=== PATIENT | male | born 1970 | race Caucasian/White ===

== ENCOUNTER 2019-04-05 08:45 | Emergency (ER) | payer OTHER ==
[~2019-04-05] VITALS: Ht 167.6 cm; Wt 88.5 kg
[~2019-04-05 08:45] MED LIST: FENOFIBRATE145 MG; METOPROLOL SUCC25 MG; ORPH100T PO; SKELAXIN800 MG PO; ZOCOR5 MG
[2019-04-05] MEDS ORDERED: LISINOPRIL5 MG (08:54)
== END 2019-04-05 16:40 ==
LOC: ER 08:45 → CPU-OBS 09:20 → ER 09:20
DX: R07.89 Other chest pain (principal); I10 Essential (primary) hypertension; E78.5 Hyperlipidemia, unspecified
CPT/HCPCS: 93005; 93306; G0378; G0379

== ENCOUNTER 2019-04-28 07:24 | Outpatient (CLI) | payer OTHER ==
[~2019-04-28 07:24] MED LIST changes: +LISINOPRIL5 MG
== END 2019-04-28 07:25 | disposition home or self-care (01) ==
LOC: NUCLEAR 07:24
DX: I20.9 Angina pectoris, unspecified (principal)
CPT/HCPCS: 78452; 93017; A9500

== ENCOUNTER 2019-08-17 19:03 | Emergency (ER) | payer OTHER ==
[~2019-08-17] VITALS: Ht 167.6 cm; Wt 84.4 kg
== END 2019-08-17 20:23 | disposition home or self-care (01) ==
LOC: ER 19:03
DX: S81.821A Laceration with foreign body, right lower leg, initial encounter (principal); W45.8XXA Other foreign body or object entering through skin, initial encounter; Y93.89 Activity, other specified; Y92.89 Other specified places as the place of occurrence of the external cause; Y99.8 Other external cause status

== ENCOUNTER 2019-08-25 07:54 | Emergency (ER) | payer OTHER ==
[~2019-08-25] VITALS: Ht 167.6 cm; Wt 84.4 kg
== END 2019-08-25 10:17 | disposition home or self-care (01) ==
LOC: ER 07:54
DX: Z48.02 Encounter for removal of sutures (principal)

== ENCOUNTER 2020-04-13 18:56 | Emergency (ER) | payer OTHER ==
[~2020-04-13] VITALS: Ht 167.6 cm; Wt 81.6 kg
== END 2020-04-13 21:16 | disposition home or self-care (01) ==
LOC: ER 18:56
DX: S00.83XA Contusion of other part of head, initial encounter (principal); S40.011A Contusion of right shoulder, initial encounter; S50.01XA Contusion of right elbow, initial encounter; V19.9XXA Pedal cyclist (driver) (passenger) injured in unspecified traffic accident, initial encounter; Y93.89 Activity, other specified; Y92.89 Other specified places as the place of occurrence of the external cause; Y99.8 Other external cause status

== ENCOUNTER 2022-10-19 16:02 | Emergency (ER) | payer OTHER ==
[~2022-10-19] VITALS: Ht 167.6 cm; Wt 88.5 kg
[2022-10-19] MEDS ORDERED: ANTIVERT25 M2 PO (20:50)
== END 2022-10-19 22:12 | disposition home or self-care (01) ==
LOC: ER 16:02
DX: R42 Dizziness and giddiness (principal); I10 Essential (primary) hypertension; Z88.6 Allergy status to analgesic agent

== ENCOUNTER 2023-03-12 09:12 | Emergency (ER) | payer OTHER ==
[~2023-03-12] VITALS: Ht 167.6 cm; Wt 88.5 kg
[~2023-03-12 09:12] MED LIST changes: +ANTIVERT25 M2 PO
[2023-03-12] MEDS ORDERED: DICY20TA PO (18:03)
[2023-03-12] MEDS ORDERED: ZOFRAN8 MG PO (18:03)
[2023-03-12] MEDS ORDERED: PEPCID20 MG PO (18:03)
[2023-03-12] MEDS ORDERED: INTESTINEX680 M1 PO (18:03)
== END 2023-03-12 18:09 | disposition home or self-care (01) ==
LOC: ER 09:12
DX: K52.89 Other specified noninfective gastroenteritis and colitis (principal); I10 Essential (primary) hypertension; Z88.6 Allergy status to analgesic agent; Z91.010 Allergy to peanuts; Z91.018 Allergy to other foods

== ENCOUNTER 2023-12-24 12:56 | Emergency (ER) | payer OTHER ==
[~2023-12-24] VITALS: Ht 167.6 cm; Wt 88.5 kg
[~2023-12-24 12:56] MED LIST changes: +DICY20TA PO; +INTESTINEX680 M1 PO; +PEPCID20 MG PO; +ZOFRAN8 MG PO
[2023-12-24] MEDS ORDERED: GUAIFENESIN/DEXTROMETHORPHAN 100 MG/5 ML ML PO ONE (15:15)
[2023-12-24] MEDS ORDERED: FAMOTIDINE/PF 20 MG/2 ML VIAL IV ONE (15:15)
[2023-12-24 15:51] LABS: HEMATOCRIT 43.3 % (39.0-48.0); HEMOGLOBIN 14.7 g/dL (13-16.00); MEAN CELL VOLUME 88.8 fL (80.0-100.00); MEAN CORPUSCULAR HEMOGLOBIN 30.2 pg (27.00-32.0); PLATELET COUNT 225 K/uL (150-450); RED BLOOD COUNT 4.88 M/uL (4.00-6.00); RED CELL DISTRIBUTION WIDTH 13.9 % (11.5-14.5)
[2023-12-24 16:22] LABS: BILIRUBIN TOTAL 0.24 mg/dL (0.3-1.2); CALCIUM 8.9 mg/dL (8.5-10.1); CREATININE SERUM 0.99 mg/dL (0.70-1.30); GFR 78.48; GLOBULINA 3.6 G/DL (2.4-3.5); POTASSIUM 3.93 mEq/L (3.5-5.1); TOTAL PROTEIN 7.6 gm/dL (6.4-8.2)
[2023-12-24] MEDS ORDERED: OSELTAMIVIR PHOSPHATE 75 MG CAPSULE PO ONE (16:45)
[2023-12-24] MEDS ORDERED: OSEL75CA PO (17:34)
[2023-12-24] MEDS ORDERED: PEPCID AC20 MG PO (17:34)
[2023-12-24] MEDS ORDERED: TUSSIN DM SYRU118 ML PO (17:34)
== END 2023-12-24 18:03 | disposition home or self-care (01) ==
LOC: ER 12:56
PROVIDERS: Nurse Practitioner Family
DX: J10.1 Influenza due to other identified influenza virus with other respiratory manifestations (principal); R10.13 Epigastric pain; R10.9 Unspecified abdominal pain; Z20.822 Contact with and (suspected) exposure to COVID-19; I10 Essential (primary) hypertension; Z91.010 Allergy to peanuts; Z91.018 Allergy to other foods; Z88.6 Allergy status to analgesic agent

== ENCOUNTER 2024-05-24 18:26 | Emergency (ER) | payer OTHER ==
[~2024-05-24] VITALS: Ht 172.7 cm; Wt 72.6 kg
[~2024-05-24 18:26] MED LIST changes: +OSEL75CA PO; +PEPCID AC20 MG PO; +TUSSIN DM SYRU118 ML PO
[2024-05-24] MEDS ORDERED: OMEGA-31000 MG (19:29)
[2024-05-24] MEDS ORDERED: CRESTOR40 MG (19:29)
[2024-05-24] MEDS ORDERED: FENOFIBRATE160 MG (19:39)
[2024-05-24 19:47] VITALS: BP 160/100; O2SAT 100
[2024-05-24] MEDS ORDERED: FUROsemide 20 MG/2 ML VIAL IV ONE (20:00)
[2024-05-24] MEDS ORDERED: ENALAPRILAT DIHYDRATE 1.25 MG/ML VIAL IV ONE ×2 (20:00→20:15)
[2024-05-24] MEDS ORDERED: CLONIDINE HCL 0.1 MG TABLET PO ONE ×2 (20:00→20:14)
[2024-05-24] MEDS ORDERED: FUROsemide 20 MG/2 ML VIAL ONE (20:14)
[2024-05-24 20:17] LABS: HEMATOCRIT 43.3 % (39.0-48.0); HEMOGLOBIN 14.6 g/dL (13-16.00); MEAN CELL VOLUME 89.7 fL (80.0-100.00); MEAN CORPUSCULAR HEMOGLOBIN 30.2 pg (27.00-32.0); MEAN CORPUSCULAR HGB CONC 33.7 g/dl (32.0-36.0); PLATELET COUNT 249 K/uL (150-450); RED BLOOD COUNT 4.83 M/uL (4.00-6.00); RED CELL DISTRIBUTION WIDTH 13.5 % (11.5-14.5)
[2024-05-24 20:45] LABS: ALBUMIN 4.3 gm/dL (3.4-5.0); BILIRUBIN TOTAL 0.4 mg/dL (0.3-1.2); CALCIUM 9.4 mg/dL (8.5-10.1); CREATININE SERUM 0.94 mg/dL (0.70-1.30); GFR 83.32; GLOBULINA 3.6 G/DL (2.4-3.5); POTASSIUM 4.07 mEq/L (3.5-5.1); TOTAL PROTEIN 7.9 gm/dL (6.4-8.2)
== END 2024-05-24 22:06 | disposition home or self-care (01) ==
LOC: ER 18:27
PROVIDERS: General Practice
DX: I16.9 Hypertensive crisis, unspecified (principal); I10 Essential (primary) hypertension; Z88.6 Allergy status to analgesic agent; Z91.018 Allergy to other foods; Z91.010 Allergy to peanuts

== ENCOUNTER 2024-12-18 08:55 | Outpatient (CLI) | payer OTHER ==
[~2024-12-18 08:55] MED LIST changes: +CRESTOR40 MG; +FENOFIBRATE160 MG; +OMEGA-31000 MG
== END 2024-12-18 08:57 | disposition home or self-care (01) ==
LOC: NUCLEAR 08:55
PROVIDERS: ATTEND Specialist
DX: I82.409 Acute embolism and thrombosis of unspecified deep veins of unspecified lower extremity (principal); I82.403 Acute embolism and thrombosis of unspecified deep veins of lower extremity, bilateral; I87.2 Venous insufficiency (chronic) (peripheral)